=== PATIENT | male | born 1990 | race Caucasian/White ===

== ENCOUNTER 2017-01-05 11:06 | Day surgery (SDC) | payer MEDICAID ==
[2017-01-05] MEDS ORDERED: NS 1,000 ML IV SCH (12:30)
[2017-01-05] MEDS ORDERED: IOPAMIDOL (ISOVUE-M 300) 15 ML VIAL ONE (12:34)
[2017-01-05] MEDS ORDERED: TRIAMCINOLONE ACETONIDE 200 MG/5 ML MDV IM ONE (12:35)
[2017-01-05 13:25] LABS: INR 1.03 (0.83-1.16); PROTIME(PATIENT) 13.4 SEC (12.0-15.0)
[2017-01-05 13:26] LABS: APTT 30.3 SEC (23.0-38.0)
[2017-01-05] MEDS ORDERED: fentaNYL 100 MCG/2 ML INJ ONE (13:52)
[2017-01-05] MEDS ORDERED: MIDAZOLAM 2 MG/2 ML VIAL ONE (13:54)
[2017-01-05 14:53] VITALS: TEMP 99.7; O2SAT 96
[2017-01-05] MEDS ORDERED: ONDANSETRON DISINTEGRATING 4 MG TAB PO PRN (14:55)
[2017-01-05] MEDS ORDERED: ONDANSETRON 4 MG/2 ML VIAL IVP PRN (14:55)
[2017-01-05 15:02] VITALS: BP 130/86; RESP 18
[2017-01-05 15:05] VITALS: PULSE 62
== END 2017-01-05 15:03 | disposition home or self-care (01) ==
LOC: FIMAGING 11:06
PROVIDERS: ATTEND Neurological Surgery
PROC: 3E0S3BZ Introduction of Anesthetic Agent into Epidural Space, Percutaneous Approach (ICD-10-PCS; principal; 2017-01-05 14:20)
PROC: 3E0S33Z Introduction of Anti-inflammatory into Epidural Space, Percutaneous Approach (ICD-10-PCS; principal; 2017-01-05 14:20)
DX: M54.16 Radiculopathy, lumbar region (principal); M48.07 Spinal stenosis, lumbosacral region; M51.37 Other intervertebral disc degeneration, lumbosacral region
CPT/HCPCS: J2250; J3010; J3301; Q9967